=== PATIENT | female | born 1930 | race Caucasian/White ===

== ENCOUNTER 2017-11-15 13:35 | Inpatient (IN) | payer OTHER, MEDICAID ==
[~2017-11-15] VITALS: Ht 167.6 cm; Wt 81.6 kg
[2017-11-15] MEDS ORDERED: ACETAMINOPHEN 325 MG TABLET PO PRN (14:00)
[2017-11-15] MEDS ORDERED: LORAZEPAM 0.5 MG TABLET PO PRN (14:00)
[2017-11-15] MEDS ORDERED: MAG HYDROX/AL HYDROX/SIMETH 30 ML UDC PO PRN (14:00)
[2017-11-15] MEDS ORDERED: MAGNESIUM HYDROXIDE 30 ML UDC PO PRN (14:00)
[2017-11-15] MEDS ORDERED: ZOLPIDEM TARTRATE 5 MG TABLET PO PRN (14:00)
[2017-11-15] MEDS ORDERED: RISP0.253 PO (15:26)
[2017-11-15] MEDS ORDERED: HYDR-552 PO (15:26)
[2017-11-15] MEDS ORDERED: IPRA3AMP IH (15:26)
[2017-11-15] MEDS ORDERED: TRAZ-144 PO (15:26)
[2017-11-15] MEDS ORDERED: ENOX40DI SQ (15:29)
--- NOTE | 2017-11-15 15:39 | NUR ---
GPS RN ADMITTING NOTE: PT 87 Y/O FEMALE ADMITTED FROM [facility] PER 5150 FOR GD PT HOMELESS CONCERNED FOR DELUSIONS AND CONCERNED THAT TAKING APPROPRIATE CARE OF HERSELF PT DIAGNOSIS OF SCHIZOPHRENIA AND BIPOLAR DISORDER. PT REPORTS THAT HER FAKED HIS AND IS NOW TRYING TO GET HER SHE HAS NO PLAN FOR FOOD CLOTHES CORRECTION OUTSIDE OF THE HOTEL.PER ONE TO ONE ASSESSMENT PT ARGUMENTATIVE IRRITABLE NON COOPERATIVE, REFUSED TO COOPERATE. DR BAHENA NOTIFIED WITH ADMITTING ORDERS , BELONGING CHECKED PT REFUSED VS, REFUSED SKIN ASSESSMENT AND MRSA NARES,PT EVERY DAY SMOKER REFUSED NICOTINE PATCH WHEN ASKED. WILL CONTINUE MONITORING AND INDORSE TO INCOMING SHIFT RN FOR CONTINUATION AND COMPLETION OF ADMISSION.
[2017-11-15] MEDS ORDERED: ALBUTEROL FS 2.5 MG/0.5 ML VIAL.NEB NEB PRN (16:00)
[2017-11-15] MEDS ORDERED: HYDROCODONE/APAP 5/325MG 1 EACH TABLET PO PRN (16:00)
[2017-11-15 20:00] VITALS: BP 122/63
[2017-11-16 08:00] VITALS: BP 150/92
[2017-11-16] MEDS ORDERED: ENOXAPARIN SODIUM 40 MG/0.4 ML DISP.SYRIN SQ SCH (09:00)
--- NOTE | 2017-11-16 10:00 | NUR ---
GPS/RN PT REFUSED BLOOD DRAW OFFERED X3
--- NOTE | 2017-11-16 10:15 | NUR ---
Initial Discharge Plan: Patient is homeless. Patient does not have a contact # and or emergency person to notify. Pt would like to remain in a hospital setting, "As long as I can smoke." SW will follow up. SW will ensure pt is safely and properly discharged.
--- NOTE | 2017-11-16 11:50 | NUR ---
GPS/RN ZYPREXA 5MG IM ADMINISTERED PER DR BAHENA ORDER FOR BEHAVIOR
[2017-11-16] MEDS ORDERED: OLANZAPINE 10 MG VIAL IM ONE (12:00)
[2017-11-16 16:00] VITALS: BP 139/79
[2017-11-16 20:00] VITALS: BP 103/51
[2017-11-16] MEDS: risperiDONE-M 0.5 MG TAB.RAPDIS PO SCH (21:36)
[2017-11-16 23:00] VITALS: BP 106/65
[2017-11-17 08:00] VITALS: BP 115/79
[2017-11-17] MEDS: risperiDONE-M 0.5 MG TAB.RAPDIS PO SCH (08:19)
--- NOTE | 2017-11-17 08:20 | NUR ---
GPS/RN PT REFUSED AM MEDS OFFERED X3 BY THE WOOD FLOOR REFINISHER OF THIS NOTE AND BY CHARGE NURSE CAMERON PRICE WELL
--- NOTE | 2017-11-17 11:00 | NUR ---
GPS/RN DR BAHENA ASSESSED THE PT. WITH ORDER GIVEN TO D/C PT AMA. NO HI OR SI REPORTED/ NOTED AT THE TIME OF D/C. VSS. NO DISTRESS NO C/O PAIN REPORTED.PT IS AMBULATORY SELF CARE, ABLE TO MAKE THE DECISIONS AND TAKE CARE OF HERSELF. PT OFFERED THE TAXI VOUCHER AND HELP WITH PRISON BUT THE SHE DECLINED THE OFFER AND REFUSED TO SIGN THE WAIVER. BELONGINGS/VALUABLES RETURNED. PT HAS MONEY AVAILABLE FOR TRANSPORTATION, FOOD AND PRISON. PT WAS ACCOMPANIED TO THE HOSPITAL MAIN ENTRANCE. MACHINE SHOP INSTRUCTOR TOBY MADE AWARE OF PT'S DISCHARGE.
== END 2017-11-17 11:00 | disposition home or self-care (01) | DRG 885 ==
LOC: GPS 13:35
PROVIDERS: ADMIT Psychiatry & Neurology Psychiatry; ATTEND Psychiatry & Neurology Psychiatry
DX: F20.0 Paranoid schizophrenia (principal); F29 Unspecified psychosis not due to a substance or known physiological condition; J44.9 Chronic obstructive pulmonary disease, unspecified; F31.9 Bipolar disorder, unspecified; Z59.0 Homelessness; Z91.19 Patient's noncompliance with other medical treatment and regimen
CPT/HCPCS: J3490